=== PATIENT | male | born 1960 | race Caucasian/White ===

== ENCOUNTER 2025-01-24 19:13 | Inpatient (IN) | payer OTHER ==
[~2025-01-24] VITALS: Ht 177.8 cm; Wt 86.2 kg
[2025-01-24 20:10] LABS: HEMATOCRIT. 44.1 % (42.0-52.0); HEMOGLOBIN. 15.1 g/dL (14.0-18.0); MEAN CORPUSCULAR HEMOGLOBIN 29.6 pg (28.0-32.0); MEAN CORPUSCULAR HGB CONC 34.1 g/dL (31.0-37.0); MEAN CORPUSCULAR VOLUME 86.6 fL (80.0-94.0); MEAN PLATELET VOLUME 8.3 fl (7.4-10.4); PLATELET 303 x1000/uL (130-400); RED BLOOD CELL COUNT 5.09 mill/uL (4.7-6.1); RED CELL DISTRIBUTION WIDTH 13.5 % (11.6-14.6); WHITE BLOOD COUNT 3.6 x1000/uL (4.5-11.0)
[2025-01-24 20:16] LABS: DIFFERENTIAL COMMENT 1
[2025-01-24 20:17] LABS: CHLORIDE 105 mEq/L (98-107); POTASSIUM 3.4 mEq/L (3.5-5.1); SODIUM 140 mEq/L (136-145)
[2025-01-24 20:18] LABS: CALCIUM 9.6 mg/dL (8.7-10.4); CARBON DIOXIDE 28 mEq/L (21-32)
[2025-01-24 20:23] LABS: CREATININE 0.9 mg/dL (0.6-1.3); GLUCOSE 132 mg/dL (70-105); UREA NITROGEN BLOOD < 5 mg/dL (9-23)
[2025-01-24 20:25] LABS: PROTHROMBIN TIME 10.3 sec (9.6-11.0)
[2025-01-24 20:26] LABS: TROPONIN I HIGH SENSITIVITY < 4 ng/L (3.0-53)
[2025-01-24 20:36] LABS: PLATELET ESTIMATE NORMAL
[2025-01-24 22:04] LABS: TROPONIN I HIGH SENSITIVITY < 4 ng/L (3.0-53)
[2025-01-25 05:18] VITALS: BP 124/91; PULSE 96; RESP 18; TEMP 36.6
[2025-01-25 08:11] VITALS: BP 102/61; PULSE 46; RESP 16; TEMP 36.3; O2SAT 99
[2025-01-25] MEDS: ENOXAPARIN 40MG/0.4ML SYR SUBCUT SCH (09:00)
[2025-01-25] MEDS ORDERED: ONDANSETRON HCL 4MG/2ML INJ IV PRN (09:45)
[2025-01-25] MEDS ORDERED: ATEN100T PO (09:46)
[2025-01-25] MEDS ORDERED: LOSA50TA41 MT (09:48)
[2025-01-25] MEDS ORDERED: LOSA50TA41 PO (09:48)
[2025-01-25] MEDS: ASPIRIN 81MG TABLET PO NR (10:14)
[2025-01-25] MEDS: POTASSIUM CHLORIDE 20MEQ TABLET SR PO NR (10:14)
[2025-01-25 12:00] VITALS: BP 112/75; PULSE 56; RESP 18; TEMP 36.7; O2SAT 98
[2025-01-25 12:52] LABS: *AMPHETAMINES SCREEN URINE NEGATIVE (NEGATIVE); *BARBITURATES SCREEN URINE NEGATIVE (NEGATIVE); *BENZODIAZEPINES SCREEN URINE NEGATIVE (NEGATIVE); *COCAINE SCREEN URINE NEGATIVE (NEGATIVE); CANNABINOID URINE SCREEN NEGATIVE (NEGATIVE); ECSTASY MDMA SCREEN URINE NEGATIVE (NEGATIVE); METHADONE URINE SCREEN NEGATIVE (NEGATIVE); OPIATES URINE SCREEN NEGATIVE (NEGATIVE); PHENCYCLIDINE URINE SCREEN NEGATIVE (NEGATIVE)
[2025-01-25 16:00] VITALS: BP 115/59; PULSE 56; RESP 16; TEMP 36.4; O2SAT 99
[2025-01-25] MEDS: ATENOLOL 50 MG TABLET PO SCH (19:32)
[2025-01-25] MEDS: LOSARTAN 50 MG TABLET PO SCH (20:54)
[2025-01-26 08:00] VITALS: BP 105/52; PULSE 84; RESP 16; TEMP 36.6; O2SAT 97
[2025-01-26] MEDS: ASPIRIN 81MG TABLET PO SCH (08:37)
[2025-01-26] MEDS ORDERED: VERAPAMIL HCL 2.5 MG/1 ML 2ML VIAL IV ONE ×3 (11:39→14:13)
[2025-01-26] MEDS ORDERED: LIDOCAINE HCL 1% 20ML VIAL ONE ×2 (11:39→13:56)
[2025-01-26] MEDS ORDERED: DIPHENHYDRAMINE 50MG/ML VIAL ONE ×2 (11:39→14:10)
[2025-01-26] MEDS ORDERED: HEPARIN 1000 UNITS/ML 10ML ONE ×2 (11:39→13:56)
[2025-01-26] MEDS ORDERED: IODIXANOL 320MG/ML 100 ML BOTTLE IV ONE ×2 (11:39→13:56)
[2025-01-26 12:00] VITALS: BP 107/87; PULSE 53; RESP 20; TEMP 36.7; O2SAT 98
[2025-01-26] MEDS ORDERED: FENTANYL CITRATE/PF 50MCG/ML 2ML VIAL ONE ×2 (12:13→14:11)
[2025-01-26] MEDS ORDERED: MIDAZOLAM HCL 2 MG/2 ML VIAL ONE ×2 (12:13→14:11)
[2025-01-26] MEDS ORDERED: ACETAMINOPHEN 325MG TABLET PO PRN (15:15)
[2025-01-26] MEDS ORDERED: ATROPINE SULFATE 1MG/10ML SYR IV PRN (15:15)
[2025-01-26 19:32] VITALS: BP 122/77; PULSE 63; TEMP 98.6; O2SAT 99
== END 2025-01-26 20:15 | disposition home or self-care (01) | DRG 287 ==
LOC: ER 19:13 → 8WST 22:04
PROVIDERS: ADMIT Internal Medicine; ATTEND Internal Medicine
PROC: 4A023N7 Measurement of Cardiac Sampling and Pressure, Left Heart, Percutaneous Approach (ICD-10-PCS; principal; 2025-01-26)
PROC: B2111ZZ Fluoroscopy of Multiple Coronary Arteries using Low Osmolar Contrast (ICD-10-PCS; 2025-01-26)
DX: I25.110 Atherosclerotic heart disease of native coronary artery with unstable angina pectoris (principal); E87.6 Hypokalemia; I10 Essential (primary) hypertension; D72.819 Decreased white blood cell count, unspecified; E78.5 Hyperlipidemia, unspecified
CPT/HCPCS: 36415; 71045; 80048; 80305; 83880; 84484; 85025; 93005; 93458; 99285; A4606; A6449; C1769; C1887; C1893; J1200; J1644; J1650; J2250; J3010; J3490; Q9967